=== PATIENT | male | born 1945 | race Caucasian/White ===

== ENCOUNTER 2017-09-09 13:05 | Outpatient (CLI) | payer MEDICARE, BC ==
[2014-11-13 09:24] VITALS: O2SAT 92
== END 2017-09-09 13:06 | disposition home or self-care (01) | DRG 554 ==
LOC: CONVCARE 13:05
PROVIDERS: ATTEND Orthopaedic Surgery
DX: M16.11 Unilateral primary osteoarthritis, right hip (principal)
CPT/HCPCS: 73501

== ENCOUNTER 2017-09-30 09:58 | Inpatient (IN) | payer MEDICARE, BC ==
[~2017-09-30 09:58] MED LIST: DEXAMETHASONE 20 MG/5 ML (4 MG/ML SOL) ONE; HYDROMORPHONE 1 MG/ML SYRINGE ONE; LIDOCAINE HCL 1% MPF SOL ONE; MIDAZOLAM 2 MG/2 ML SOL ONE; ONDANSETRON HCL 4 MG/2 ML SOL ONE; PROPOFOL 500 MG/50 ML EMU IV ONE; SODIUM CHLORIDE 0.9% FLUSH 10 ML SOL IV PRN
[2017-09-30] MEDS ORDERED: SCOPOLAMINE 1.5MG PATCH TD SCH (10:30)
[2017-09-30] MEDS ORDERED: LACTATED RINGERS 1,000 ML IV ONE (10:30)
[2017-09-30] MEDS: LACTATED RINGERS 1,000 ML IV SCH (11:32)
[2017-09-30] MEDS ORDERED: BUPIVACAINE LIPOSOME 20 ML SUS ONE (11:46)
[2017-09-30] MEDS ORDERED: SODIUM CHLORIDE 20 ML 40 ML ONE (11:46)
[2017-09-30] MEDS ORDERED: CEFAZOLIN SODIUM 1 GM PDS ONE ×2 (12:53→16:09)
[2017-09-30] MEDS ORDERED: PHENYLEPHRINE HYDROCHLORIDE 10 MG/ML SOL ONE (13:19)
[2017-09-30] MEDS: TRANEXAMIC ACID 100 MG/ML SOL ONE ×2 (13:20→14:02)
[2017-09-30] MEDS ORDERED: PROPOFOL 10 MG/ML EMU IV ONE (13:23)
[2017-09-30] MEDS ORDERED: TEMAZEPAM 15MG 15 MG CAP PO PRN (14:04)
[2017-09-30] MEDS ORDERED: ONDANSETRON 4 MG ODT BU PRN (14:04)
[2017-09-30] MEDS ORDERED: MORPHINE SULFATE 10 MG/ML SOL IM PRN (14:04)
[2017-09-30] MEDS ORDERED: MAGNESIUM HYDROXIDE 30 ML SUS PO PRN (14:04)
[2017-09-30] MEDS ORDERED: BISACODYL 10 MG SUP PR PRN (14:04)
[2017-09-30] MEDS ORDERED: ONDANSETRON HCL 4 MG/2 ML SOL IV PRN (14:04)
[2017-09-30] MEDS ORDERED: DIAZEPAM 5 MG TAB PO PRN (14:04)
[2017-09-30] MEDS ORDERED: FLEET ENEMA PR PRN (14:04)
[2017-09-30] MEDS ORDERED: ALUMINUM/MAGNESIUM 30 ML SUS PO PRN (14:04)
[2017-09-30] MEDS ORDERED: SODIUM CHLORIDE 0.9% 500 ML 500 ML IV PRN (14:04)
[2017-09-30] MEDS ORDERED: DIPHENHYDRAMINE 25 MG CAP PO PRN (14:04)
[2017-09-30] MEDS: SODIUM CHLORIDE 0.9% FLUSH 10 ML SOL IV SCH ×2 (16:05→21:55)
[2017-09-30] MEDS: ACETAMINOPHEN 500 MG 500 MG TAB PO SCH ×2 (16:13→20:22)
[2017-09-30] MEDS: DEXTROSE/SALINE 0.45% 1,000 ML IV SCH (16:15)
[2017-09-30] MEDS: CEFAZOLIN SODIUM 1 GM PDS 2 GM in SODIUM CHLORIDE 0.9% 100 ML 100 ML IV SCH (20:18)
[2017-09-30] MEDS: SENNOSIDES A AND B 8.6 MG TAB PO SCH (20:22)
[2017-09-30] MEDS: SIMVASTATIN 20 MG TAB PO SCH (20:23)
[2017-10-01] MEDS: DEXTROSE/SALINE 0.45% 1,000 ML IV SCH (01:29)
[2017-10-01] MEDS: OXYCODONE HYDROCHLORIDE 5 MG TAB PO PRN ×4 (01:29→20:08)
[2017-10-01] MEDS ORDERED: CEFAZOLIN SODIUM 1 GM PDS ONE (04:04)
[2017-10-01] MEDS ORDERED: SODIUM CHLORIDE 0.9% 100 ML 100 ML IV ONE (04:04)
[2017-10-01] MEDS: CEFAZOLIN SODIUM 1 GM PDS 2 GM in SODIUM CHLORIDE 0.9% 100 ML 100 ML IV SCH (04:12)
[2017-10-01] MEDS: SODIUM CHLORIDE 0.9% FLUSH 10 ML SOL IV SCH ×5 (06:44→21:23)
[2017-10-01 07:20] LABS: MEAN CORPUSCULAR HGB CONC 35.4 gm/dl (32.0-36.0)
[2017-10-01] MEDS: ACETAMINOPHEN 500 MG 500 MG TAB PO SCH ×4 (10:35→20:07)
[2017-10-01] MEDS: RIVAROXABAN 10 MG TAB PO SCH (10:35)
[2017-10-01 17:43] LABS: BASOPHILS % (AUTO) 1 % (0-3); EOSINOPHILS % (AUTO) 0 % (0-9); HEMATOCRIT 36 % (39-53); MEAN CORPUSCULAR HGB CONC 34.5 gm/dl (32.0-36.0); MEAN CORPUSCULAR VOLUME 89 fL (80-100); MONOCYTES % (AUTO) 9.7 % (0-12); NEUTROPHILS % (AUTO) 80.7 % (37-80)
[2017-10-01 17:49] LABS: APPEARANCE,URINE Clear; BILIRUBIN,URINE NEGATIVE (NEGATIVE); COLOR,URINE Yellow; GLUCOSE, URINE (UA) NEGATIVE (NEGATIVE); KETONES,URINE TRACE (NEGATIVE); LEUKOCYTE ESTERASE ,URINE TRACE (NEGATIVE); NITRATE,URINE NEGATIVE (NEGATIVE); OCCULT BLOOD,URINE TRACE INTACT (NEG-TRACE); PH,URINE 5.5; UROBILINOGEN,URINE 0.2 (0.2-1.0 EU)
[2017-10-01 18:19] LABS: RBC,URINE 0-1 (0-3AV/HPF)
[2017-10-01] MEDS: SENNOSIDES A AND B 8.6 MG TAB PO SCH (20:07)
[2017-10-01] MEDS: SIMVASTATIN 20 MG TAB PO SCH (20:07)
[2017-10-02] MEDS: OXYCODONE HYDROCHLORIDE 5 MG TAB PO PRN ×4 (03:30→22:59)
[2017-10-02] MEDS: SODIUM CHLORIDE 0.9% FLUSH 10 ML SOL IV SCH ×3 (06:33→21:15)
[2017-10-02 07:33] LABS: MEAN CORPUSCULAR HGB CONC 36.5 gm/dl (32.0-36.0)
[2017-10-02] MEDS: ACETAMINOPHEN 500 MG 500 MG TAB PO SCH ×4 (08:50→21:13)
[2017-10-02] MEDS: RIVAROXABAN 10 MG TAB PO SCH (08:50)
[2017-10-02] MEDS: LACTATED RINGERS 1,000 ML IV SCH (10:59)
[2017-10-02] MEDS: DEXTROSE/SALINE 0.45% 1,000 ML IV SCH (10:59)
[2017-10-02 12:40] VITALS: RESP 16
[2017-10-02] MEDS: SENNOSIDES A AND B 8.6 MG TAB PO SCH (21:13)
[2017-10-02] MEDS: SIMVASTATIN 20 MG TAB PO SCH (21:13)
[2017-10-02 23:03] VITALS: O2SAT 93
[2017-10-03 07:08] LABS: MEAN CORPUSCULAR HGB CONC 35.1 gm/dl (32.0-36.0)
[2017-10-03] MEDS: ACETAMINOPHEN 500 MG 500 MG TAB PO SCH (08:46)
[2017-10-03] MEDS: RIVAROXABAN 10 MG TAB PO SCH (08:47)
[2017-10-03] MEDS: SODIUM CHLORIDE 0.9% FLUSH 10 ML SOL IV SCH (08:49)
[2017-10-03 09:08] VITALS: BP 159/81; PULSE 86; TEMP 98.9
== END 2017-10-03 10:55 | disposition home or self-care (01) | DRG 470 ==
LOC: ACUTE CARE 09:58
PROVIDERS: ADMIT Orthopaedic Surgery; ATTEND Orthopaedic Surgery
PROC: 0SR904A Replacement of Right Hip Joint with Ceramic on Polyethylene Synthetic Substitute, Uncemented, Open Approach (ICD-10-PCS; principal; 2017-09-30 12:30)
PROC: F01ZDFZ Gait and/or Balance Assessment using Assistive, Adaptive, Supportive or Protective Equipment (ICD-10-PCS; 2017-10-01)
PROC: F01ZBZZ Bed Mobility Assessment (ICD-10-PCS; 2017-10-01)
PROC: F01ZCZZ Transfer Assessment (ICD-10-PCS; 2017-10-01)
PROC: F02Z1ZZ Dressing Assessment (ICD-10-PCS; 2017-10-01)
PROC: F02Z0ZZ Bathing/Showering Assessment (ICD-10-PCS; 2017-10-01)
PROC: F02Z3ZZ Grooming/Personal Hygiene Assessment (ICD-10-PCS; 2017-10-01)
DX: M16.11 Unilateral primary osteoarthritis, right hip (principal); Z96.641 Presence of right artificial hip joint; J98.11 Atelectasis
CPT/HCPCS: 36415; 71046; 73501; 73502; 81001; 85025; 85027; 87040; 94150; 99070; J0690; J1100; J2250; J2405; A6232; A9270-GY; J1170; J2001; J2370; J2704; J3490; L1830; Q3014

== ENCOUNTER 2017-11-11 08:52 | Outpatient (CLI) | payer MEDICARE, BC | END 2017-11-11 08:53 | disposition home or self-care (01) | DRG 561 | LOC: CONVCARE 08:52 | PROVIDERS: ATTEND Orthopaedic Surgery | DX: Z47.1 Aftercare following joint replacement surgery (principal); Z96.641 Presence of right artificial hip joint | CPT/HCPCS: 73501 ==